=== PATIENT | male | born 1980 | race Caucasian/White ===

== ENCOUNTER 2022-09-06 23:01 | Emergency (ER) | payer SELFPAY ==
[~2022-09-06] VITALS: Ht 180.3 cm; Wt 122.5 kg
[2022-09-06] MEDS ORDERED: KETOROLAC TROMETHAMINE INJ 60 MG/2 ML VIAL IM ONE (23:50)
--- NOTE | 2022-09-06 23:50 | NUR ---
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
--- NOTE | 2022-09-06 23:57 | NUR ---
BIBS C/O R RIB PAIN S/P "FELL OFF 4 FT LADDER" YESTERDAY AT WORK DENIES KO DENIES HEAD TRAUMA. ALSO R BIG TOE PAIN X 1 MONTH
[2022-09-07] MEDS ORDERED: KETOROLAC TROMETHAMINE INJ 60 MG/2 ML VIAL IM ONE
--- NOTE | 2022-09-07 00:30 | NUR ---
PT TAKEN TO CT
--- NOTE | 2022-09-07 00:43 | NUR ---
PT RETURNED TO ER BED [address]
[2022-09-07] MEDS ORDERED: IBUP-1953 PO (03:30)
[2022-09-07 03:39] VITALS: BP 142/92
--- NOTE | 2022-09-07 03:39 | NUR ---
Patient discharged to home in stable condition. Written and verbal after care instructions given. Patient verbalizes understanding of instruction.
== END 2022-09-07 03:50 | disposition home or self-care (01) ==
LOC: ER 23:10
DX: S20.211A Contusion of right front wall of thorax, initial encounter (principal); W11.XXXA Fall on and from ladder, initial encounter; Y93.89 Activity, other specified; Y92.89 Other specified places as the place of occurrence of the external cause; Y99.8 Other external cause status
CPT/HCPCS: 99285; 96372; 71100; 71250; J1885

== ENCOUNTER 2024-05-29 20:20 | Emergency (ER) | payer OTHER ==
[~2024-05-29] VITALS: Ht 180.3 cm; Wt 120.2 kg
[~2024-05-29 20:20] MED LIST: IBUP-1953 PO
[2024-05-29] MEDS ORDERED: KETOROLAC TROMETHAMINE INJ 60 MG/2 ML VIAL IM ONE (21:43)
[2024-05-29] MEDS ORDERED: ACETAMINOPHEN ES 500 MG TABLET ONE (21:44)
[2024-05-29] MEDS: KETOROLAC TROMETHAMINE 15 MG/ML VIAL IM ONE (21:48)
[2024-05-29] MEDS: ACETAMINOPHEN ES 500 MG TABLET PO ONE (21:48)
[2024-05-29 22:13] LABS: BASOPHILS % (AUTO) 0.1 % (0.0-2.0); HEMATOCRIT 44 % (39-51); HEMOGLOBIN 14.9 g/dL (13.5-17.5); LYMPHOCYTES # (AUTO) 1.1 K/uL (0.8-4.8); LYMPHOCYTES % (AUTO) 14.2 % (20.0-44.0); MEAN CORPUSCULAR HEMOGLOBIN 26 PG (26.0-33.0); MEAN CORPUSCULAR HGB CONC 34 g/dl (31.0-36.0); MEAN CORPUSCULAR VOLUME 77 fL (80-96); MONOCYTES # (AUTO) 0.5 K/uL (0.1-1.30); MONOCYTES % (AUTO) 6.7 % (2.0-12.0); NEUTROPHILS # (AUTO) 6.2 K/uL (1.8-8.9); PLATELET COUNT (AUTO) 144 K/uL (150-450); RED BLOOD CELL COUNT(AUTO) 5.72 MIL/uL (4.5-6.0); WHITE BLOOD COUNT (AUTO) 7.9 K/uL (4.3-11.0)
[2024-05-29 22:18] LABS: CALCIUM, SERUM 8.6 mg/dL (8.5-10.1); CREATININE 0.9 mg/dL (0.6-1.3); POTASSIUM 4.1 mmol/L (3.5-5.1)
[2024-05-29] MEDS ORDERED: IBUP-1490 PO (22:45)
[2024-05-29 22:57] VITALS: BP 135/80; TEMP 99; O2SAT 98
== END 2024-05-29 22:58 | disposition home or self-care (01) ==
LOC: ER 20:22
DX: J06.9 Acute upper respiratory infection, unspecified (principal); R73.9 Hyperglycemia, unspecified; R06.02 Shortness of breath; R05.9 Cough, unspecified; Z20.822 Contact with and (suspected) exposure to COVID-19
CPT/HCPCS: 99284; 71045; 87426; 96372; 87804 ×2; 85025; 80048; 36415; J1885

== ENCOUNTER 2024-09-17 22:22 | Emergency (ER) | payer OTHER ==
[~2024-09-17] VITALS: Ht 180.3 cm; Wt 108.9 kg
[~2024-09-17 22:22] MED LIST changes: +IBUP-1490 PO
[2024-09-17] MEDS: IV NS 0.9% 1,000 ML BAG IV ONE (23:56)
[2024-09-17] MEDS ORDERED: MORPHINE SULFATE INJ 4 MG/ML DISP.SYRIN ONE (23:59)
[2024-09-17] MEDS ORDERED: VANCOMYCIN 1 GM /D5W 250 ML PB IV ONE (23:59)
[2024-09-17] MEDS ORDERED: KETOROLAC TROMETHAMINE 15 MG/ML VIAL ONE (23:59)
[2024-09-18 00:19] LABS: CREATININE 0.9 mg/dL (0.6-1.3); POTASSIUM 3.9 mmol/L (3.5-5.1)
[2024-09-18 00:22] LABS: BASOPHILS % (AUTO) 0.2 % (0.0-2.0); EOSINOPHILS # (AUTO) 0.1 K/uL (0.0-0.7); HEMATOCRIT 42 % (39-51); HEMOGLOBIN 13.7 g/dL (13.5-17.5); LYMPHOCYTES % (AUTO) 18.4 % (20.0-44.0); MEAN CORPUSCULAR HEMOGLOBIN 25 PG (26.0-33.0); MEAN CORPUSCULAR HGB CONC 33 g/dl (31.0-36.0); MEAN CORPUSCULAR VOLUME 77 fL (80-96); MONOCYTES % (AUTO) 9.8 % (2.0-12.0); NEUTROPHILS # (AUTO) 7.6 K/uL (1.8-8.9); NEUTROPHILS % (AUTO) 70.6 % (43.0-81.0); PLATELET COUNT (AUTO) 221 K/uL (150-450); RED BLOOD CELL COUNT(AUTO) 5.43 MIL/uL (4.5-6.0); RED CELL DISTRIBUTION WIDTH 14.3 % (11.5-15.0); WHITE BLOOD COUNT (AUTO) 10.7 K/uL (4.3-11.0)
[2024-09-18] MEDS: KETOROLAC TROMETHAMINE 15 MG/ML VIAL IV ONE (00:23)
[2024-09-18] MEDS: VANCOMYCIN 1 GM in IV D5W 250 ML IV ONE (00:23)
[2024-09-18] MEDS: MORPHINE SULFATE INJ 2 MG/ML DISP.SYRIN IV ONE (00:23)
[2024-09-18 00:24] LABS: ALBUMIN 3.3 g/dL (3.4-5.0); BILIRUBIN,DIRECT 0.2 mg/dL (0.0-0.2); BILIRUBIN,TOTAL 0.6 mg/dL (0.2-1.0); TOTAL PROTEIN, SERUM 8.7 g/dL (6.4-8.2)
[2024-09-18 00:26] LABS: LACTIC ACID 1.5 mmol/L (0.4-2.0)
[2024-09-18 00:45] LABS: INR 1.02 (0.91-1.10); PROTHROMBIN TIME 10.8 SECS (9.2-11.1)
[2024-09-18] MEDS ORDERED: MAG HYDROX/AL HYDROX/SIMETH 30 ML UDC PO PRN (01:30)
[2024-09-18] MEDS ORDERED: IV NS 0.9% 1,000 ML IV PRN (01:30)
[2024-09-18] MEDS ORDERED: ONDANSETRON HCL/PF 4 MG/2 ML VIAL IVP PRN (01:30)
[2024-09-18] MEDS ORDERED: MORPHINE SULFATE INJ 2 MG/ML DISP.SYRIN IV PRN (01:30)
[2024-09-18] MEDS ORDERED: INSULIN REGULAR, HUMAN 100 UNIT/ML 3 ML VIAL SQ PRN (01:30)
[2024-09-18] MEDS ORDERED: DEXTROSE 50%-WATER 50 ML DISP.SYRIN IV PRN (01:30)
[2024-09-18] MEDS ORDERED: MAGNESIUM HYDROXIDE 30 ML UDC PO PRN (01:30)
[2024-09-18] MEDS ORDERED: ENOXAPARIN SODIUM 40 MG/0.4 ML DISP.SYRIN SQ SCH (01:30)
[2024-09-18] MEDS ORDERED: ACETAMINOPHEN 325 MG TABLET PO PRN (01:30)
[2024-09-18 02:39] VITALS: BP 111/76; TEMP 103; O2SAT 98
[2024-09-18] MEDS ORDERED: PANTOPRAZOLE 40 MG TABLET.DR PO SCH (07:30)
[2024-09-18] MEDS ORDERED: BLOOD SUGAR DIAGNOSTIC 1 EACH STRIP IN SCH (07:30)
== END 2024-09-18 03:17 | disposition short-term general hospital (02) ==
LOC: ER 22:23
DX: E11.621 Type 2 diabetes mellitus with foot ulcer (principal); L97.511 Non-pressure chronic ulcer of other part of right foot limited to breakdown of skin; L08.89 Other specified local infections of the skin and subcutaneous tissue; R07.9 Chest pain, unspecified
CPT/HCPCS: 99285; 71045; 93005; 73630; 84145; 85025; 80048; 87040 ×2; 83605; 80076; 85652; 36415; 85730; 86140; 96365; 96375; J1885; J2270; J3370 ×2; J7030 ×2; J7040; A4223 ×2; J7060